=== PATIENT | male | born 1950 | race Caucasian/White ===

== ENCOUNTER 2016-05-16 06:03 | Outpatient (CLI) | payer BC ==
[~2016-05-16] VITALS: Ht 170.2 cm; Wt 106.1 kg
--- NOTE | ~2016-05-16 | OR ---
[facility] AGE: 65 Y [address] ROOM: [address] [place], [place] [address] LOCATION: GPCU ADMIT DATE: 05/16/2016 OR/Procedure Report DISCHARGE DATE: 05/17/2016 FAMILY PHYSICIAN: Kannan Fowler MD ATTENDING PHYSICIAN: Adebayo Solomon SURGEON: Adebayo Solomon MD TELEPHONE EXCHANGE OPERATOR: DATE OF PROCEDURE: 05/16/2016 PROCEDURE: Bilateral selective renal angiography Bilateral SPINDLE PLUMBER and stenting of renal artery stenosis INDICATION: Uncontrolled hypertension and evidence of renal artery stenosis on CT scan of the abdomen PROCEDURE: 6F sheath to the right femoral artery, 6F JR4 was used for selective renal angiography. Following this the patient underwent percutaneous revascularization of the left and then the right renal artery. FINDINGS: Left renal artery is single supply to the left kidney. This demonstrates an ostial 85% stenosis. Right renal artery is single and supplies the right kidney; this also demonstrates an ostial stenosis of 70-75%. The patient was given Angiomax. Next, 6F RDC-1 Guide catheter was used for cannulation of left renal artery. Next, an 0.014 Prowater was advanced distal to the stenosis. SPINDLE PLUMBER was carried out with a 6.0 x 15 Davie balloon. We did upsize the sheath and Guide to 8F systems. Following this the 0.014 Prowater was used again to cross the ostial stenosis. Subsequently an 8.0 x 17 Visio Pro stent was deployed across this stenosis post dilated to 8.5 mm. A 0% angiographic residual stenosis was noted on followup angiography. The RDC one guide catheter was then used for selective cannulation of the right renal artery. The same 0.014 wire was used to cross this lesion. Balloon angioplasty was carried out with the same 6.0 x 15 Davie balloon. Following this a 7.0 x 17 Visio Pro stent was deployed across the stenosis and dilated to 7.5 mm. Final residual stenosis was 0%. The previously placed 8F sheath was sewn in place that we pulled one hour after completion of the Angiomax infusion. His right external iliac artery does show eccentric stenosis of approximately 20-30%. CONCLUSION: 1. Bilateral renal artery stenosis. 2. Successful SPINDLE PLUMBER and stenting of bilateral ostial lesions. [facility]: [facility] AGE: 65 Y [address] ROOM: [address] [address] LOCATION: GPCU ADMIT DATE: 05/16/2016 OR/Procedure Report DISCHARGE DATE: 05/17/2016 FAMILY PHYSICIAN: Kannan Fowler MD ATTENDING PHYSICIAN: Adebayo Solomon 3. Manual pressure held for hemostasis. 4. Patient will be given dual antiplatelet therapy x1 month. 5. ADEBAYO SOLOMON MD DJM/gb /[id number] CC: CARDIOPULMINARY d: 06/07/16 1254 t: 07/04/16 0807, OPERATIVE SUMMARY
[~2016-05-16 06:03] MED LIST: ALDACTONE50 MG PO; AMARYL2 MG PO; APRESOLINE50 MG PO; ASPIRIN EC81 MG PO; CATAPRES0.2 MG PO; CIALIS5 MG PO; COQ10-VIT E 201 EACH PO; COREG 3.1253.125 MG PO; CRANBERRY200 MG PO; FISH OIL 1,2001 EACH PO; GLUCOPHAGE500 MG PO; HYDROCHLOROTHIA25 MG PO; ISORDIL20 MG PO; LEVAQUIN 750 M750 MG PO; MICARDIS80 MG PO; NAC600 MG PO; NORVASC5 MG PO; PRAVACHOL80 MG PO; PROBIOTIC1 EAC1 PO; PROTONIX40 MG PO; REGLAN10 MG PO; REGLAN5 MG PO; SELENIUM200 MC1 PO; TURMERIC500 MG PO; VITAMIN C1000 MG PO
--- NOTE | 2016-05-16 17:24 | NUR ---
Significant Event: SBP 150-180'S, MANAGED WITH HOME BP MEDS. COREG DOSE DC'D D/T HR 40-50'S. R) GROIN SITE SOFT, GAUZE/TEGADERM C/D/I. OFF BEDREST AT 1240 WITH SBA WHILE AMBULATING. UP TO BATHROOM AND WALKED IN [place] TODAY. NO C/O PAIN ONLY GAS WITH RELIEF PROVIDED FROM [facility]. BICARB GTT PER PROTOCOL COMPLETED THEN ORDER FOR 1/2NS AT 75ML/HR CONT VIA R) WRIST PIV. Follow up: HOME TOMORROW. CONT TO MONITOR GROIN SITE AND VITALS.
[2016-05-17 03:39] LABS: BASOPHIL # 0.1 K/uL (0.0-0.2); BASOPHIL % 0.5 %; EOSINOPHIL # 0.3 K/uL (0.0-0.5); EOSINOPHIL % 2.8 %; HEMATOCRIT 32.9 % (37.0-53.0); HEMOGLOBIN 11.1 g/dL (11.0-16.0); IMMATURE GRANULOCYTE # 0.1 K/uL (0.0-0.3); IMMATURE GRANULOCYTE % 0.6 %; LYMPHOCYTE # 1.2 K/uL (0.8-4.0); LYMPHOCYTE % 11.2 %; MCH 28.5 pg (27.0-34.0); MCHC 33.7 gm/dL (32.0-36.5); MCV 84.4 fl (83.0-98.0); MONOCYTE # 0.7 K/uL (0.0-1.0); MONOCYTE % 6.9 %; MPV 11.1 fl (9.4-12.4); NEUTROPHIL # (ANC) 8.2 K/uL (1.4-9.0); NRBC % 0 /100WBC (0-0.00); PLATELET COUNT 140 K/uL (150-450); RDW-CV 14.5 % (11.9-14.6); WBC 10.5 K/uL (4.0-11.0)
[2016-05-17 04:00] LABS: ALBUMIN 3.2 gm/dL (3.5-5.0); ANION GAP 14.3 (10.0-19.0); CALCIUM 8.5 mg/dL (8.5-10.5); CREATININE 1.8 mg/dL (0.6-1.3); PHOSPHORUS 2.5 mg/dL (2.5-4.9); POTASSIUM 4.3 mMol/L (3.7-5.1)
--- NOTE | 2016-05-17 04:14 | NUR ---
Significant Event: Patient alert and oriented x3, pleasant and cooperative with care. Denied pain throughout shift. Patient uses call light appropriately, up to bathroom x 3 to urinate. Patient ambulates with assist x 1, groin site C/D/I. Normal CTMPS in RLE. IVF continues as 1/2 NS @ 75/hr. No issues noted with IV's. Follow up: Monitor per POC, DC possible.
[2016-05-17] MEDS ORDERED: BRILINTA90 MG PO (08:29)
--- NOTE | 2016-05-17 10:54 | NUR ---
PATIENT AND GIVEN WRITTEN DISMISSAL INSTRUCTIONS INCLUDING NEW HOME MEDICATION LIST WITH INFORMATION ON NEW MEDS, PRESCRIPTIONS, BRIL[place] CARD WELL SAMPLES FROM CLINIC, FOLLOW-UP APPOINTMENT TIME WITH DR PARK AND INSTRUCTIONS ON HOW TO CARE FOR GROIN SITE. DIET AND ACTIVITY RESTRICTIONS ALSO DISCUSSED WITH RN. PATIENT AND BOTH VERBALLY STATE UNDERSTANDING OF INFORMATION DISCUSSED WITH RN. TELEMETRY DC'D AND PIV REMOVED WITH GAUZE AND COBAN APPLIED. TAKEN TO FRONT OF [facility] VIA WHEELCHAIR ACCOMPANIED BY STUDENT NURSE, AND PATIENT BELONGINGS AT 0930.
== END 2016-05-17 09:45 | disposition disaster alternative care site (69) ==
LOC: GPOC 06:03 → GPCU 06:03 → GPOC 11:00
PROVIDERS: Internal Medicine Interventional Cardiology
PROC: B407YZZ Plain Radiography of Left Renal Artery using Other Contrast (ICD-10-PCS; principal; 2016-05-16)
DX: I25.10 Atherosclerotic heart disease of native coronary artery without angina pectoris (principal); I70.1 Atherosclerosis of renal artery; I10 Essential (primary) hypertension; N18.9 Chronic kidney disease, unspecified; R00.1 Bradycardia, unspecified
CPT/HCPCS: C1725; C1760; C1769; C1876; C1887; J0583; J1644; J2001; J2250; J3010; J7060

== ENCOUNTER 2016-09-20 11:42 | Inpatient (IN) | payer BC ==
[~2016-09-20] VITALS: Ht 170.2 cm; Wt 91.3 kg
--- NOTE | ~2016-09-20 | DS ---
[facility]: [facility] AGE: 66 Y [address] ROOM: [place] [address] LOCATION: GPCU ADMIT DATE: 09/20/2016 Discharge Summary DISCHARGE DATE: 09/23/2016 FAMILY PHYSICIAN: Kannan Fowler MD ATTENDING PHYSICIAN: Moustapha Paiz ADMITTING DIAGNOSIS: Hyperkalemia. DISCHARGE DIAGNOSIS: Hyperkalemia resolved. SECONDARY DIAGNOSES: 1. Hypertensive urgency, resolved. 2. Chronic kidney disease, stage 4. 3. Diabetes mellitus. 4. Obesity. 5. Headache. PROCEDURE: CT head. CONSULTATION: Nephrology. HISTORY OF PRESENT ILLNESS: The patient is a 66-year-old gentleman, who came to our hospital from his primary care physician, was found to have abnormal level of potassium of 7.2. The patient has a history of chronic kidney disease stage 3-4, history of renal artery stenosis status post stenting. On initial evaluation, there were no EKG changes. The patient was admitted and was given D50 with insulin in the emergency department and admitted to Medicine for further workup. HOSPITAL COURSE: The patient was given calcium gluconate, amp of D50 with insulin with some improvement of potassium. The patient was also noted to have hypertensive urgency with systolic blood pressure in the 180s. The patient was started on nitroglycerin drip. The patient's medication of ARB and spironolactone were held. The patient was also given Kayexalate. The patient is seen by sausage stuffer, Dr. Ritter during stay. The patient's potassium resolved next day. The patient was restarted on amiloride and ARB. The patient was observed for one day and was noted to have improved hyperkalemia. The patient also complained of headache. Etiology most likely secondary to hypertensive urgency. CTA head was unremarkable. The patient's headache improved with improvement of blood pressure. The patient was started back on amiloride and started on valsartan. The patient to follow with Dr. Ritter as outpatient on Sunday. CONDITION: Stable. [facility] AGE: 66 Y [address] ROOM: [place] [address] LOCATION: GPCU ADMIT DATE: 09/20/2016 Discharge Summary DISCHARGE DATE: 09/23/2016 FAMILY PHYSICIAN: Kannan Fowler MD ATTENDING PHYSICIAN: Moustapha Paiz DISPOSITION: Stable. DISCHARGE MEDICATIONS: Please see MAR, pending study. DISCHARGE INSTRUCTIONS: A.m. cortisol level. Evaluation for possible Hugo syndrome. Follow up with Dr. Ritter on Sunday, September 25, 2016. PHYSICAL EXAMINATION: VITAL SIGNS: Temperature 97.7 degree Fahrenheit, blood pressure 173/76, pulse 55, respiratory rate 12. GENERAL APPEARANCE: The patient is alert and awake, in no acute distress. CHEST: Clear to auscultation. HEART: Regular rate and rhythm. No murmurs, rubs, or gallops. ABDOMEN: Soft, nontender, and nondistended. Bowel sounds present. GAMBLING DEALER: Alert and oriented x3. Motor and sensory grossly intact. Greater than 30 minutes was spent on discharge planning. MD YA SCHMIDT/modl /[id number] d: 09/24/16 0032 t: 09/25/16 0935, DISCHARGE SUMMARY
--- NOTE | ~2016-09-20 | ER ---
[facility] A[facility] 66 Y [address] ROOM: [address] [address] LOCATION: GPCU ADMIT DATE: 09/20/2016 ER/Outpatient Report DISCHARGE DATE: FAMILY PHYSICIAN: Kannan Fowler MD ATTENDING PHYSICIAN: VERO CALI Time of Arrival: 1142 hours. Time of Evaluation: 1155 hours. CHIEF COMPLAINT: Elevated potassium level. HISTORY OF PRESENT ILLNESS: This is a 66-year-old male, who presents to the ER, who states he was at Dr. Ritter's office today getting a routine checkup. The patient states he had his blood drawn, and he was told that he had elevated potassium level and to come here to the emergency room to get evaluated. The patient states that he sees Dr. Ritter because he has problems with his kidneys. He states he is not on dialysis, however. He has had no chest pain, no shortness of breath, no cough, no troubles with bowel movements, no troubles with urination. The patient states he has never had troubles with his potassium level before, but states he has a significant history for hypertension. The patient denies any other problems at this time. ALLERGIES: PENICILLIN. MEDICATIONS: Please see medication list, nurse's notes. PAST MEDICAL HISTORY: 1. Ckc-mdzqpoa-sukzubdob diabetic. 2. Hypertension. 3. Kidney disease. 4. Coronary artery disease with history of CABG, 5-vessel, and he also has 4 to 5 cardiac stents. SOCIAL HISTORY: He drinks alcohol rarely. He denies any smoking use. REVIEW OF SYSTEMS: All systems were reviewed and were negative with the exception of those discussed in the HPI. PHYSICAL EXAMINATION: [facility] AGE: 66 Y [address] ROOM: [address] [address] LOCATION: GPCU ADMIT DATE: 09/20/2016 ER/Outpatient Report DISCHARGE DATE: FAMILY PHYSICIAN: Kannan Fowler MD ATTENDING PHYSICIAN: VERO CALI VITAL SIGNS: Height 5 feet 7 inches stated, weight 107.3 kg taken. Blood pressure is 138/83, pulse 53, respirations 16, temperature 97.5 degrees tympanically, and saturations 98% on room air. Peterson Coma score is 15. GENERAL: Alert and obese male, in no acute distress. HEENT: Head, normocephalic. He does display moist mucous membranes. Eyes, pupils are equal and reactive to light. NECK: Supple. No lymphadenopathy. LUNGS: Clear to auscultation bilaterally. HEART: Bradycardic, normal rhythm. ABDOMEN: Soft, it is nontender. He has good bowel sounds throughout. No masses palpated. EXTREMITIES: No clubbing or cyanosis. He has full range of motion of all limbs. SKIN: Warm, dry, and intact. NEURO: Cranial nerves 2 through 12 grossly intact. Gait is steady without assistance. LABORATORY DATA: CBC: White count is 9.9, hemoglobin is 12.3, platelets 142, ANC is 7.0. INR is 0.90. Sodium level is 138, potassium level is 7.2, BUN 35, creatinine 1.9, estimated GFR is 36, magnesium is 2.1, CPK is 54, potassium is 5.4. CK-MB is 1.7, troponin I is less than 0.040. Chest x-ray was negative for any infiltrate. EKG shows a right bundle-branch block. He has peaked T-waves on that. IMPRESSION: 1. Hyperkalemia. 2. Hypertension. 3. Insulin-dependent diabetic. 4. Renal insufficiency. 5. Coronary artery disease. ASSESSMENT AND PLAN: Discussed the patient's care with Dr. Maloney. We did start an IV here in the emergency room as well. I did speak with Dr. Ritter and notified him of his elevated potassium level, and he would like us to give him calcium gluconate 10 mL solution over 10 minutes, 1 amp of D50, 10 units of regular insulin IV, Kayexalate 30 g p.o., and 3 breathing treatments. The patient did receive all those things. We did repeat potassium levels and his potassium level did come down to 5.4. His blood glucose was 96. After those medications were given, however, the patient started complaining of myalgias all over his body and then had his pain changed to severe bilateral rib pain that would come in waves. The patient's pain would go up to a 10/10 and cause him to tear up because of the pain. I did give him 2 mg of morphine for that and then a PATIENT'S NAME: ROLANDO AMOR [facility] AGE: 66 Y [address] ROOM: [id number] [place], [place] [address] LOCATION: [facility] ADMIT DATE: 09/20/2016 ER/Outpatient Report DISCHARGE DATE: FAMILY PHYSICIAN: Kannan Fowler MD ATTENDING PHYSICIAN: VERO CALI A total of 1 mg of Dilaudid. I did discuss the patient's care with Dr. Maloney again, Dr. Maloney also evaluated the patient. I did speak with Dr. Kannan Fowler, who is his primary care physician, and Dr. Fowler would like me to give it to the on-call doctor at [facility]; therefore, I called Dr. Cali, and he will be admitting the patient. I did re-advise that the patient did not feel comfortable to Dr. Ritter, so he will be consulting on the case as well. The patient and the patient's understand and agree with care. ARIE LOOMIS PA-C FOR DO ERICK JOHNS/sylvia /[id number] ATTENDING ADDENDUM: I saw and evaluated the patient. I have discussed with the PA, agree with the PA's findings and plan and agree with the documented note above. The patient will be admitted for further evaluation and treatment. BALTA MALONEY DO d: 09/21/16 0148 t: 09/27/16 0653, OUTPATIENT REPORT
--- NOTE | ~2016-09-20 | HP ---
PATIENT'S NAME: ROLANDO AMOR [facility] AGE: 66 Y [address] ROOM: [id number] [place], [place] [address] LOCATION: GPCU ADMIT DATE: 09/20/2016 History & Physical DISCHARGE DATE: FAMILY PHYSICIAN: Kannan Fowler MD ATTENDING PHYSICIAN: VERO CALI DATE OF SERVICE: CHIEF COMPLAINT: Hyperkalemia. HISTORY OF PRESENT ILLNESS: This is a 66-year-old male, who came here today for a routine followup with his primary pond tender in our Clinic, and was found to have a hyperkalemia of 7.2. He has a history of CKD, stage 3, baseline creatinine is around 1.7 and baseline GFR is around 38. Today, was also found to be with a creatinine of 1.9 and GFR of 36. The patient states that his only complaint is that he has some headache. He states this has been pretty chronic, and his blood pressure has been very hard to control at home. His headache is getting a bit worse than his usual baseline, but he denies any confusion or slurred speech or facial droop or chest pain or shortness of breath or palpitation or any other complaints. He states that his appetite is good, and he says his urine output has been pretty much the same. The patient was brought to the Emergency Room and EKG was performed. It showed right bundle-branch block, and that explained the prolonged QRS more than 120 msec. The patient got the treatment with IV insulin and dextrose, and also p.o. Kayexalate. A re-check of the potassium level three hours after, went down from 7.2 to 5.4. The patient was admitted to the floor for further care. The patient states that he is very compliant with all the home medications, and he does not miss any dose. He states that he checks blood pressure at home everyday, and usually his baseline blood pressure is between 160 to 180 systolic blood pressure. Today, it was found to be 210 on admission. REVIEW OF SYSTEMS: As mentioned in the history of present illness. All other systems were reviewed and were negative except those mentioned in the history of present illness. PAST MEDICAL HISTORY: 1. Hypertension. 2. Hyperlipidemia. 3. Gastroesophageal reflux disease. 4. Diabetes, type 2. 5. Coronary artery disease, status post CABG many years ago. [facility]GE[facility] 66 Y [address] ROOM: [address] [address] [facility] AD[facility] DATE: 09/20/2016 History & Physical DISCHARGE DATE: FAMILY PHYSICIAN: Kannan Fowler MD ATTENDING PHYSICIAN: VERO CALI 6. CKD, stage 3. 7. Transthoracic echo back in March 2016 showed EF of 60%. ALLERGIES: PENICILLIN, WHICH CAUSES ANAPHYLAXIS. HOME MEDICATIONS: Currently has been reconciled. SOCIAL HISTORY: The patient denies any alcohol or illegal drug or cigarette use. FAMILY HISTORY: Father has heart problems, details are not clear, and also has prostate cancer. Mother has heart problem, details are not clear, and also has hyperlipidemia. PAST SURGICAL HISTORY: 1. CABG 10 years ago. 2. Status post abdominal aortic aneurysm repair. 3. Knee surgery in the past. 4. Tonsillectomy. 5. Also, had percutaneous revascularization of the left and the right renal arteries for renal artery stenosis back in April 2016. PHYSICAL EXAMINATION: VITAL SIGNS: At the time of my dictation, blood pressure was 210/130, temperature was 98.1, heart rate was 53, respirations were 16, and saturation was 96% on room air. GENERAL APPEARANCE: Alert and oriented x3, in no acute distress. There is no confusion. No blurry vision. HEENT: Pupils were equally round and reactive to light. Extraocular muscles were intact. Anicteric sclerae. Nasal turbinates are normal bilaterally. Moist oral mucosa. NECK: No JVD. CARDIOVASCULAR: Regular rate and rhythm. Normal S1 and S2. No murmur. No rubs. No gallops. RESPIRATORY: Clear to auscultation. No rales. No rhonchi. No wheezing. No crackles. ABDOMEN: Obese, soft, nontender, and nondistended. Bowel sounds are present. No mass. EXTREMITIES: He has edema in bilateral lower extremities. He says it is pretty much chronic at the baseline. SKIN: No ulcer. No rash. No cyanosis. NEUROLOGICAL: Grossly nonfocal. [facility]GE[facility] 66 Y [address] [address] [facility] AD[facility] DATE: 09/20/2016 History & Physical DISCHARGE DATE: FAMILY PHYSICIAN: Kannan Fowler MD ATTENDING PHYSICIAN: VERO CALI LABORATORY DATA: CPK of 54. Troponin is less than 0.04. White blood cells were 9.9, hemoglobin was 12.3, hematocrit was 36.9, MCV was 87.9, and platelets were 142. Glucose of 110, BUN of 34, creatinine of 1.9, sodium of 141, potassium of 6.4, chloride of 115, CO2 of 19, calcium of 8.9, total protein of 7.0, albumin of 3.6, AST of 14, ALT of 27, alkaline phosphatase of 63, total bilirubin of 0.4, magnesium of 2.1, and GFR of 36. A1c is 5.4. Urine protein was 95.6, urine creatinine was 74, and urine protein and urine creatinine ratio was 1.3. CK-MB is 1.7. IMAGING STUDIES: Chest x-ray on admission showed clear. EKG on admission on September 20, 2016, at 04:32 p.m. showed sinus rhythm with heart rate of 71, QRS of 80 msec, QTc at 397 msec, and RI of 168 msec. I do not appreciate an ectopic T-wave. ASSESSMENT AND PLAN: 1. Regarding his hyperkalemia: Likely from the mild worsening of the kidney function and also from the home medication, he also takes Aldactone at home. Currently, potassium is high again at 6.4. EKG will be done right now. I am starting him on the IV calcium gluconate 1 g right now to avoid delay awaiting for the EKG. We also will be giving him IV regular insulin 10 units and mixed with dextrose 50% in 50 mL, and then start him on the dextrose 10% drip at 75 mL/hr to prevent hypoglycemia. We will be checking the fingerstick glucose every hour until glycemia is stable. We will also give him another dose of p.o. Kayexalate 30 g right now. We will check sodium again every 4 hours until stable. Continue telemetry monitoring. Increase oral intake. The patient should be taking a renal diet, and I will stop all the medications at home that can cause hyperkalemia including Aldactone. I will also hold off on the ARBs, given that he has a slightly worsening kidney function than his baseline in the setting of hyperkalemia. Give IV fluids of normal saline at 50 mL/hr to increase hydration to improve the kidney function. Further plan depends on clinical course. 2. Regarding his acute kidney injury on chronic kidney disease, stage 3: As mentioned before, give him some normal saline hydration. Check a renal panel later on. 3. Regarding his hypertensive emergency: Emergency because he has a worsening headache. There was no confusion. I will start him on the IV nitroglycerin drip, given that he is bradycardic; heart rate is in the 55. For the headache caused by the nitroglycerin drip, I will give him IV Dilaudid p.r.n. and also p.o. [place] p.r.n. for headache control and also p.o. Tylenol p.r.n. for headache control. PATIENT'S NAME: ROLANDO AMOR [facility] AGE: 66 Y [address] ROOM: [place] [address] [facility] ADMIT DATE: 09/20/2016 History & Physical DISCHARGE DATE: FAMILY PHYSICIAN: Kannan Fowler MD ATTENDING PHYSICIAN: VERO CALI 4. Regarding his hypertension: Home medication currently is being reconciled. For now, I will use IV nitroglycerin drip as mentioned before. The goal should be to lower the blood pressure less than 140 systolic, given that this is a hypertensive emergency causing hypertension-induced headache and also acute kidney injury on chronic kidney disease, stage 3. 5. Regarding his coronary artery disease, status post CABG: No active issue. Continue home medication, currently is being reconciled. 6. Regarding deep venous thrombosis prophylaxis: He is on heparin subq 3 times a day. 7. He is a full code. Time spent in care on the day of admission was 45 minutes, where 25 minutes was spent on counseling including going over the plan of care with the patient and addressing all the questions and concerns to his satisfaction. The remainder of the time was spent on chart review and interview, and also on the physical examination. Further plan will depend on clinical course. I also went over the plan of care with the nurse as well. MD ALMA DELIA BEASLEY/sylvia /[id number] D: [id number] T: [id number] HISTORY & PHYSICAL
--- NOTE | ~2016-09-20 | CON ---
PATIENT'S NAME: ROLANDO AMOR [facility] AGE: 66 Y [address] ROOM: [id number] [place], [place] [address] LOCATION: GPCU ADMIT DATE: 09/20/2016 Consultation DISCHARGE DATE: 09/23/2016 FAMILY PHYSICIAN: Kannan Fowler MD ATTENDING PHYSICIAN: Moustapha Paiz CORRECTED COPY / ACCT NO CORRECTED / 10-03-2016 / KLD DATE OF CONSULTATION: 09/21/2016 REFERRING PHYSICIAN: Adebayo Solomon MD REASON FOR CONSULTATION: Severe hyperkalemia. HISTORY OF PRESENT ILLNESS: The patient is a 66-year-old white male with history of stage 3 chronic kidney disease and diabetic nephropathy. The patient had urine protein creatinine ratio of 0.7. He, however, had uncontrolled hypertension and at one time his systolic blood pressure went up to 240. He was on 7 antihypertensive medicines which included spironolactone, amiloride, and telmisartan. The patient came in for a routine visit and his chemistry showed that his potassium was 7.5. He was immediately transferred to emergency room where he received calcium gluconate, glucose insulin therapy, and Kayexalate. Prior to this therapy, the patient did have a repeat whole blood potassium checked and it was still 7.2. The patient reports that he is not feeling well. He has a headache and therefore he was admitted to the hospital for further management. His creatinine which is baseline about 1.7 went up to 1.9. I have been asked to see him for a Nephrology consultation. The patient has history of renal artery stenosis and had bilateral renal artery stents placed in April 2016. REVIEW OF SYSTEMS: GENERAL: He denies any fever, chills, or rigors. He feels tired. HEENT: Denies any sore throat or sinus congestion. He has headache. CARDIOVASCULAR: Denies any chest pain, dyspnea on exertion. RESPIRATORY: Denies any shortness of breath, cough, or wheezing. GI: Denies any abdominal pain, nausea, or vomiting. : Denies any dysuria or frequency. MUSCULOSKELETAL: Denies any joint pain or swelling. SKIN: Denies any rash or pruritus. IMMUNOLOGIC: Denies any allergies or hay fever. LYMPHATIC/HEMATOLOGIC: Denies any lymph node enlargement or easy bruising. ENDOCRINE: Denies any heat or cold intolerance. PSYCHIATRIC: Denies any sadness, crying spells, poor concentration, or panic attack. PAST MEDICAL HISTORY: 1. Hypertension. [facility] AGE: 66 Y [address] ROOM: [id number] [place] [id number] LOCATION: [facility] ADMIT DATE: 09/20/2016 Consultation DISCHARGE DATE: 09/23/2016 FAMILY PHYSICIAN: Kannan Fowler MD ATTENDING PHYSICIAN: Moustapha Paiz 2. Hyperlipidemia. 3. Gastroesophageal reflux disease. 4. History of diabetes mellitus. 5. Coronary artery disease. 6. Stage 3 chronic kidney disease. 7. Renal artery stenosis. PAST SURGICAL HISTORY: 1. Coronary artery bypass grafting. 2. Colon surgery. 3. Knee arthroscopy. 4. Total knee arthroplasty. 5. Renal artery stent placement. SOCIAL HISTORY: The patient is disabled. 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 He is and has 4 children. Never smoked. Remote history of alcohol use. FAMILY HISTORY: Positive family history of hypertension. No family history of kidney disease or dialysis. ALLERGIES: ALLERGIC TO LANSOPRAZOLE WELL PENICILLIN. MEDICATIONS: His outpatient medications included: 1. Amiloride 5 mg a day. 2. Aspirin 325 mg a day. 3. Carvedilol 12.5 mg orally twice a day. 4. Cialis 5 mg a day. 5. Clindamycin 300 mg capsule. 6. Clonidine 0.2 mg twice a day. 7. CoQ10 200 mg a day. 8. Fish oil 1000 mg a day. 9. Glimepiride 2 mg a day. 10. Hydralazine 50 mg 3 times a day. 11. Hydrochlorothiazide 25 mg a day. 12. Isosorbide dinitrate 20 mg one tablet 3 times a day. 13. Metformin 500 mg 2 tablets twice a day. 14. Micardis 80 mg every day. 15. Pantoprazole 40 mg a day. 16. Pravastatin 80 mg a day. 17. Probiotic capsules. 18. Spironolactone 25 mg twice a day. PATIENT'S NAME: [facility] AGE: 66 Y [address] ROOM: [id number] [place] [id number] LOCATION: GPCU ADMIT DATE: 09/20/2016 Consultation DISCHARGE DATE: 09/23/2016 FAMILY PHYSICIAN: Kannan Fowler MD ATTENDING PHYSICIAN: Moustapha Paiz 19. Selenium capsules. 20. Turmeric capsules. 21. Vitamin C. PHYSICAL EXAMINATION: GENERAL APPEARANCE: This is a 66-year-old, white male, lying in the bed, not in acute distress. VITAL SIGNS: Temperature 98.4, pulse 56, systolic blood pressure 137, diastolic 58, respiratory rate of 18. HEENT: Head: Normocephalic. Pupils are round and equal. Normal eyelids and conjunctivae. Oral cavity clear. Moist mucosa. Trachea is central. No thyromegaly. No bruit. HEART: Sounds are audible in all areas without any gallop or murmur. There is no pericardial rub. Pulses regular in rhythm. LUNGS: Bilaterally clear to auscultation. No intercostal retraction. ABDOMEN: Obese, soft, nontender, cannot palpate any liver or spleen. EXTREMITIES: He has no clubbing or cyanosis. SKIN: No sign of vasculitis. NEUROLOGICAL: He is alert and oriented x3, and grossly nonfocal. HIGHER PSYCHIATRIC FUNCTION: He has normal speech and memory. LABORATORY DATA: WBC 9.9, hemoglobin 12.3, hematocrit 36.9, platelet count 142. Glucose 140, BUN 28, creatinine 1.8, sodium 140, potassium 4.8, chloride 108, bicarbonate 23, calcium 8.4, albumin of 3.4, phosphorus of 4.3, estimated GFR 38. ASSESSMENT: 1. Severe hyperkalemia. Most likely due to diminished glomerular filtration rate as well as the being on spironolactone, telmisartan, and amiloride. 2. Stage 3 chronic kidney disease. 3. Diabetic nephropathy. 4. Degenerative joint disease. 5. Proteinuria. 6. Accelerated hypertension. 7. Renal artery stenosis. PLAN: Creatinine has gone up from 1.7 to 2.0, and now it is 1.8. The patient has GFR of 38. Potassium has improved to 5.0, and I will get a dietary consult to educate him about low-potassium diet. I will gradually add back his antihypertensive medicines that would be related to hyperkalemia but we may add Veltassa to lower his potassium. I will give him amiloride 5 mg a day. The patient is supposed to be on hydrochlorothiazide. We could also consider loop diuretic which will help with blood pressure management as well as potassium management. I did talk to him about physiologic management of blood PATIENT'S NAME: ROLANDO AMOR [facility] AGE: 66 Y [address] ROOM: [place] [id number] LOCATION: GPCU ADMIT DATE: 09/20/2016 Consultation DISCHARGE DATE: 09/23/2016 FAMILY PHYSICIAN: Kannan Fowler MD ATTENDING PHYSICIAN: Moustapha Paiz pressure control and I advised him to lose weight. We will get a dietary consultation for this. His clonidine dose is 0.1 mg and I will double the dose to 0.1 mg twice a day. I will follow his kidney function very closely while he is in the hospital. Thank you very much for allowing me to participate in this patient's care. M MANUEL MCCALL MD MII/modl /[id number] CC: Kannan Fowler MD CORRECTED COPY / ACCT NO CORRECTED / 10-03-2016 / KLD d: 09/21/16 1810 t: 10/26/16 1103, CONSULTATION REPORT
[~2016-09-20 11:42] MED LIST changes: +BRILINTA90 MG PO
[2016-09-20 12:25] LABS: BASOPHIL # 0.1 K/uL (0.0-0.2); BASOPHIL % 0.7 %; EOSINOPHIL # 0.3 K/uL (0.0-0.5); EOSINOPHIL % 3.4 %; HEMATOCRIT 36.9 % (37.0-53.0); HEMOGLOBIN 12.3 g/dL (11.0-16.0); IMMATURE GRANULOCYTE # 0.2 K/uL (0.0-0.3); LYMPHOCYTE # 1.6 K/uL (0.8-4.0); LYMPHOCYTE % 16.6 %; MCH 29.3 pg (27.0-34.0); MCHC 33.3 gm/dL (32.0-36.5); MCV 87.9 fl (83.0-98.0); MONOCYTE # 0.6 K/uL (0.0-1.0); MONOCYTE % 6.3 %; MPV 11.3 fl (9.4-12.4); NRBC % 0 /100WBC (0-0.00); PLATELET COUNT 142 K/uL (150-450); RDW-CV 15.5 % (11.9-14.6); WBC 9.9 K/uL (4.0-11.0)
[2016-09-20 12:34] LABS: PROTIME 9.4 SECONDS (9.8-11.4); PTT 26 SECONDS (25-32)
[2016-09-20 12:44] LABS: ALBUMIN 3.6 gm/dL (3.5-5.0); ALK PHOS 63 IU/L (33-138); ALT 27 IU/L (12-78); AST 14 IU/L (10-40); BLOOD UREA NITROGEN 35 mg/dL (6-24); CALCIUM 8.6 mg/dL (8.5-10.5); CHLORIDE 115 mMol/L (96-110); CPK 54 IU/L (35-332); CREATININE 1.9 mg/dL (0.6-1.3); ESTIMATED GFR (MDRD EQUATION) 36; MAGNESIUM 2.1 mg/dL (1.8-2.6); SODIUM 138 mMol/L (135-145); TOTAL BILIRUBIN 0.4 mg/dL (0.0-1.5)
[2016-09-20 12:47] LABS: ANION GAP 13.2 (10.0-19.0); CO2 17 mMol/L (22-32); POTASSIUM 7.2 mMol/L (3.7-5.1)
--- NOTE | 2016-09-20 19:25 | NUR ---
Patient has been traveling the last few days and has noticed his blood pressure has been elevated. He had been put on some new medications for his kidneys and was reporting his blood pressure to [facility]. He call the clinic today and the nurse told him to come in to run some labs and see the patient. K 7.4 and hypertensive. They had him come into the ER where he was given Kayexulate, insulin, D5, Calcium carbonate. K now 5.4. On arrival to room patient A/Ox3. VSS except, BP 191/86. Lungs clear. Bowel sounds present, last BM 09/20/16. No pain, nausea, or vomiting. IV to Lt forearm saline locked. Skin extremely dry. Dr. Paiz notifed of patient arrival to floor.
[2016-09-20 21:16] LABS: ANION GAP 13.4 (10.0-19.0); CALCIUM 8.9 mg/dL (8.5-10.5); CREATININE 1.9 mg/dL (0.6-1.3)
[2016-09-20 21:20] LABS: POTASSIUM 6.4 mMol/L (3.7-5.1)
[2016-09-21 01:23] LABS: ANION GAP 13.4 (10.0-19.0); CALCIUM 9.1 mg/dL (8.5-10.5)
[2016-09-21 01:25] LABS: POTASSIUM 5.4 mMol/L (3.7-5.1)
--- NOTE | 2016-09-21 04:55 | NUR ---
A/O X 3. SBP in 190s, HR 50-70s. Nitro gtt to keep sbp <140 currently at 5mcg. Potassium of 5.2 at 0100. Kayexulate given x2. Regular insulin given x3. Calcium gluconate x2. 20g IV in LFA. CT of head in scheduled for the morning. C/o headache. Continue to monitor potassium and blood pressure. Patient up one assist.
[2016-09-21 05:17] LABS: ANION GAP 12.8 (10.0-19.0); CALCIUM 8.3 mg/dL (8.5-10.5); CREATININE 1.9 mg/dL (0.6-1.3)
[2016-09-21 05:19] LABS: POTASSIUM 5.8 mMol/L (3.7-5.1)
[2016-09-21 08:39] LABS: CALCIUM 9.1 mg/dL (8.5-10.5); CREATININE 1.9 mg/dL (0.6-1.3)
[2016-09-21] MEDS ORDERED: MIDAMOR5 MG PO (09:47)
--- NOTE | 2016-09-21 12:03 | NUR ---
1200 Introduced self and CM role to James. James tells me that he lives here in [place], with his , Thao Barrera. He plans on returning there when he is ready to do so. He shares with me that his PCP is Dr.Chadd Fowler. He gets his medications from either [facility] or mail order, whichever is cheaper for him to do depending on the medication. James does his own medications at home. He denies any needs for any DME or HHC upon dismissal. States that he gets around without any troubles and does all of his own ADLs. James says that his will take him home when that time comes. Denies any other questions, needs or concerns at this time. Left contact information on his whiteboard for any further questions. CM to continue to follow and assist. Plan home.
[2016-09-21 15:40] LABS: ALBUMIN 3.4 gm/dL (3.5-5.0); ANION GAP 13.8 (10.0-19.0); CALCIUM 8.4 mg/dL (8.5-10.5); CREATININE 1.8 mg/dL (0.6-1.3); PHOSPHORUS 4.3 mg/dL (2.5-4.9); POTASSIUM 4.8 mMol/L (3.7-5.1)
--- NOTE | 2016-09-21 16:16 | NUR ---
CONSULT FOR: LOW POTASSIUM DIET, 2 GRAMS NA, WEIGHT REDUCTION DIET EDUCATION. REVIEWED LOW SODIUM DIET EDUCATION MATERIAL WITH PATIENT. REVIEWED PT'S TYPICAL DIET AT HOME AND PROVIDED SUGGESTION FOR LOW SODIUM FOOD ITEMS CHOICES. BRIEFLY DISCUSSED COOKING/SNACKING TIPS. REVIEWED FOOD ITEMS LOW IN POTASSIUM AND ENCOURAGED PT TO STICK TO ONE SERVING AT A TIME. LEFT A LIST OF FOOD HIGH IN POTASSIUM TO AVOID. BRIEFLY DISCUSSED WEIGHT LOSS TIPS (COOKING/SNACKING TIPS). LEFT LOW POTASSIUM FOOD LIST, LOW SODIUM AND WEIGHT LOSS EDUCATION MATERIAL AND CONTACT INFORMATION WITH PATIENT.
--- NOTE | 2016-09-21 18:54 | NUR ---
Significant Event: A/Ox3. [id number]. P-50-60s. Afebrile. Room air. L)FA IV infusing Nitro at 25mcg/hr, titrate to keep <160s. Up Independant. Complaints of head ache norco given x1 which brought pain down to tolerable level. Patient states he had chronic headache. In K+ is <3.5 or >5 call MD.
--- NOTE | 2016-09-22 04:48 | NUR ---
Significant Event: Patient alert and oriented. Transfers independently, or SBA at night. Nitro drip at 15mcg. SPB have been ranging from 130's-150's. Did drop down to the 1-teens but came back up. IV to L) forearm. ACHS accuchecks, 153 last evening. Up to restroom X2 throughout the evening. Cooperative with cares. Follow up:
[2016-09-22 04:54] LABS: ALBUMIN 3.1 gm/dL (3.5-5.0); CALCIUM 8.1 mg/dL (8.5-10.5); PHOSPHORUS 3.8 mg/dL (2.5-4.9)
--- NOTE | 2016-09-22 17:48 | NUR ---
Significant Event: NITRO GTT TURNED OFF AT 1120 TODAY WITH DIOVAN INITIATED KEEPING SBP 150-160'S. BRADYCARDIA WITH RATES 45-50'S. UP INDEPENDENTLY IN ROOM AND IN [place]. K+ LEVEL THIS AM 5.0 WITH RECHECK K+ 4.[address] AT [address] MCCALL. ACHS ACCUCHECKS WITH SSI, ALL BLOOD SUGARS <200 WITH NO COVERAGE NEEDED. Follow up: MONITOR BLOOD PRESSURES AND LABS IN AM. CONT PER PLAN OF CARE. POSSIBLE DC HOME TOMORROW.
--- NOTE | 2016-09-23 04:34 | NUR ---
Significant Event: A/0 X 3, UP AD KHOA IN ROOM. AMBULATED IN HALLWAY. SBP'S STARTED INT THE 170'S BUT HAVE DECREASED TO 110 BY 3RD ASSESSMENT. HR REMAINS PERI IN THE 50'S AND INTO THE LOW 40'S WHILE SLEEPING (NORM FOR HIM). ALL OTHER VSS ON RA, AFEBRILE. NO COMPLICATIONS THIS EVENING. NO PAIN, NO PAIN MEDS GIVEN. Follow up: DISCHARGE TODAY LONG POTASSIUM IS WNL.
[2016-09-23 04:48] LABS: ALBUMIN 3.1 gm/dL (3.5-5.0); ANION GAP 12.6 (10.0-19.0); CREATININE 1.8 mg/dL (0.6-1.3); PHOSPHORUS 3.5 mg/dL (2.5-4.9); POTASSIUM 4.6 mMol/L (3.7-5.1)
[2016-09-23] MEDS ORDERED: MIDAMOR5 MG PO (13:52)
[2016-09-23] MEDS ORDERED: SODIUM BICARBO650 MG PO (13:56)
[2016-09-23] MEDS ORDERED: DIOVAN160 MG PO (13:57)
--- NOTE | 2016-09-23 16:44 | NUR ---
PATIENT GIVEN WRITTEN DISMISSAL INSTRUCTIONS INCLUDING NEW HOME MEDICATION LIST WITH INFORMATION ON NEW MEDS, PRESCRIPTIONS, FOLLOW-UP APPOINTMENTS, DIET AND ACTIVITY RESTRICTIONS. PATIENT STATES UNDERSTANDING OF INFORMATION DISCUSSED WITH RN. PIV REMOVED FROM L) FA WITH SOLANGE APPLIED. TELEMETRY DC'D AND PATIENT DRESSED IN OWN CLOTHING. AMBULATE WITH NURSE AIDE TO FRONT OF MEDICAL OFFICE BUILDING WITH BELONGINGS AT 1500 TO DC VIA PRIVATE CAR.
== END 2016-09-23 15:00 | disposition disaster alternative care site (69) | DRG 641 ==
LOC: GMED 11:42 → GPCU 17:24
PROVIDERS: Emergency Medicine; Internal Medicine; Internal Medicine Nephrology; ADMIT Family Medicine
DX: E87.5 Hyperkalemia (principal); N17.9 Acute kidney failure, unspecified; N18.3 Chronic kidney disease, stage 3 (moderate); E11.22 Type 2 diabetes mellitus with diabetic chronic kidney disease; I16.1 Hypertensive emergency; I12.9 Hypertensive chronic kidney disease with stage 1 through stage 4 chronic kidney disease, or unspecified chronic kidney disease; E78.5 Hyperlipidemia, unspecified; K21.9 Gastro-esophageal reflux disease without esophagitis; I25.10 Atherosclerotic heart disease of native coronary artery without angina pectoris; Z95.1 Presence of aortocoronary bypass graft; Z88.0 Allergy status to penicillin; Z95.5 Presence of coronary angioplasty implant and graft; Z79.4 Long term (current) use of insulin
CPT/HCPCS: J0360; J0610; J1170; J1644; J1940; J2270; J7030; J7040